=== PATIENT | female | born 2000 | race Hispanic/Latino ===

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

== ENCOUNTER 2018-01-05 11:51 | Emergency (ER) | payer OTHER | END 2018-01-05 13:37 | disposition home or self-care (01) | LOC: M ED 11:51 | DX: O99.89 Other specified diseases and conditions complicating pregnancy, childbirth and the puerperium (principal); M25.511 Pain in right shoulder; Z3A.09 9 weeks gestation of pregnancy; Z88.0 Allergy status to penicillin | CPT/HCPCS: 99283 ==

== ENCOUNTER 2018-03-02 12:18 | Emergency (ER) | payer OTHER ==
[2018-03-02] MEDS: ONDANSETRON 4 MG ORAL DISINTEGRATING TAB (Q0162 PER 1MG) PO (13:45)
== END 2018-03-02 14:54 | disposition home or self-care (01) ==
LOC: M ED 12:18
DX: R11.2 Nausea with vomiting, unspecified (principal); T43.205A Adverse effect of unspecified antidepressants, initial encounter; X58.XXXA Exposure to other specified factors, initial encounter; Y92.89 Other specified places as the place of occurrence of the external cause; F33.9 Major depressive disorder, recurrent, unspecified; F41.9 Anxiety disorder, unspecified; Z79.899 Other long term (current) drug therapy; Z88.0 Allergy status to penicillin
CPT/HCPCS: Q0162

== ENCOUNTER 2018-04-24 15:45 | Emergency (ER) | payer OTHER ==
[2018-04-24 16:51] LABS: BASO % 0.5 % (0.0-1.0); EOS # 0.3 10^3/uL (0.0-0.50); HEMATOCRIT 42.3 % (36.0-47.0); HEMOGLOBIN 14.6 g/dl (12.0-15.5); IMMATURE GRANULOCYTE % 0.2 % (0-3.0); LYMPH # 2.2 10^3/uL (1.5-6.5); LYMPH % 38.3 % (24.0-44.0); MEAN CORPUSCULAR HEMOGLOBIN 31.1 pg (27.0-33.0); MEAN CORPUSCULAR HGB CONC 34.5 g/dl (32.0-36.5); MONO # 0.4 10^3/uL (0.0-0.8); MONO % 6.4 % (0.0-5.0); NEUTROPHILS # 2.9 10^3/uL (1.8-7.7); NEUTROPHILS % 49.6 % (36.0-66.0); RED CELL DISTRIBUTION WIDTH 12.1 % (11.5-14.5); WHITE BLOOD COUNT 5.8 10^3/uL (4.0-10.0)
[2018-04-24 17:13] LABS: POS COUNT POS FLAG
[2018-04-24 17:22] LABS: ALBUMIN 3.6 GM/DL (3.2-5.2); ALBUMIN/GLOBULIN RATIO 0.92 (1.00-1.93); ALKALINE PHOSPHATASE 67 U/L (45-117); ALT/SGPT 16 U/L (12-78); ANION GAP 8 MEQ/L (8-16); AST/SGOT 18 U/L (7-37); BILIRUBIN,TOTAL 0.2 MG/DL (0.2-1.0); BLOOD UREA NITROGEN 13 MG/DL (7-18); CARBON DIOXIDE LEVEL 26 MEQ/L (21-32); CHLORIDE LEVEL 106 MEQ/L (98-107); CREATININE FOR GFR 0.85 MG/DL (0.55-1.30); GLUCOSE, FASTING 84 MG/DL (70-100); POTASSIUM SERUM 3.9 MEQ/L (3.5-5.1); SODIUM LEVEL 140 MEQ/L (136-145); TOTAL PROTEIN 7.5 GM/DL (6.4-8.2)
[2018-04-24 18:05] LABS: AMORPHOUS SEDIMENT RFX SMALL (NEGATIVE); KETONE, URINE AUTO RFX NEGATIVE (NEGATIVE); LEUKOCYTE ESTERASE UR AUTO RFX NEGATIVE (NEGATIVE); NITRITE, URINE AUTO RFX NEGATIVE (NEGATIVE); RBC, URINE AUTO RFX 2 /HPF (0-3); SPECIFIC GRAVITY UR AUTO RFX 1.016 (1.002-1.035); SQUAM EPITHELIAL CELL UR AURFX 1 /HPF (0-6); WBC, URINE AUTO RFX 1 /HPF (0-3)
[2018-04-24] MEDS: IBUPROFEN 600 MG TAB PO (18:52)
[2018-04-24 19:15] LABS: CONTROL LINE HCG INT CTR LINE PRESENT; HCG, SERUM QUALITATIVE NEGATIVE (NEGATIVE)
== END 2018-04-24 19:50 | disposition home or self-care (01) ==
LOC: M ED 15:45
DX: N93.8 Other specified abnormal uterine and vaginal bleeding (principal); F33.9 Major depressive disorder, recurrent, unspecified; Z79.899 Other long term (current) drug therapy; Z88.0 Allergy status to penicillin
CPT/HCPCS: 80053

== ENCOUNTER 2018-05-17 03:09 | Emergency (ER) | payer OTHER ==
[~2018-05-17] VITALS: Ht 162.6 cm; Wt 52.3 kg
[~2018-05-17 03:09] MED LIST: MIRT1TAB PO; PREN1CHW PO; VIST25CA PO; ZOFR4TAB14 PO; ZOLO50TA PO
[2018-05-17] MEDS ORDERED: PROZ20CA11 PO (03:18)
[2018-05-17] MEDS ORDERED: PROP10TA56 PO (03:18)
[2018-05-17] MEDS ORDERED: PRAZ5CAP PO (03:18)
[2018-05-17] MEDS ORDERED: NS 1,000 ML IV ONE (04:30)
[2018-05-17 05:45] VITALS: BP 108/62
[2018-05-30] MEDS ORDERED: ZOFR4TAB14 PO (00:15)
== END 2018-05-17 05:50 | disposition home or self-care (01) ==
LOC: M ED 03:09
DX: R42 Dizziness and giddiness (principal); I95.1 Orthostatic hypotension; T44.6X5A Adverse effect of alpha-adrenoreceptor antagonists, initial encounter; F41.9 Anxiety disorder, unspecified; Z79.899 Other long term (current) drug therapy; Z88.0 Allergy status to penicillin

== ENCOUNTER 2018-05-25 08:36 | Day surgery (SDC) | payer OTHER ==
[2018-05-25 09:40] LABS: CONTROL LINE UCG INT CTR LINE PRESENT; URINE PREG TEST NEGATIVE (NEGATIVE)
[2018-05-25] MEDS ORDERED: fentaNYL 100 MCG/2 ML INJECTION (J3010) As Ordered ×2 (11:10→11:30)
[2018-05-25] MEDS ORDERED: MIDAZOLAM INJ 2 MG/2 ML VIAL (J2250) As Ordered (11:10)
[2018-05-25] MEDS ORDERED: ONDANSETRON 4MG/2ML VIAL (J2405) As Ordered (11:10)
[2018-05-25] MEDS ORDERED: dexameTHASONE 4 MG/ML 1ML VIAL (J1100) As Ordered (11:10)
[2018-05-25] MEDS ORDERED: METOCLOPRAMIDE INJ 10MG/2ML VIAL (J2765) As Ordered (11:10)
[2018-05-25] MEDS ORDERED: LIDOCAINE 2% INJ 100 MG/5 ML SDV (FOR ANES.) As Ordered (11:10)
[2018-05-25] MEDS ORDERED: PROPOFOL 200 MG/20 ML VIAL As Ordered (11:10)
[2018-05-25] MEDS: dexameTHASONE 4 MG/ML 1ML VIAL (J1100) IV (11:12)
[2018-05-25] MEDS: OXYMETAZOLINE NASAL SPRAY (AFRIN) As Ordered (11:38)
[2018-05-25] MEDS ORDERED: MEPERIDINE INJ 25 MG/ML VIAL (J2175) As Ordered (11:51)
[2018-05-25] MEDS: MEPERIDINE INJ 25 MG/ML VIAL (J2175) IV ×2 (11:53→12:00)
[2018-05-25] MEDS ORDERED: PERCOCET 5MG/325MG TAB PO (12:00)
[2018-05-25] MEDS ORDERED: ONDANSETRON 4MG/2ML VIAL (J2405) IV (12:00)
[2018-05-25] MEDS ORDERED: LR 1,000 ML IV ×2 (12:00→12:15)
[2018-05-25] MEDS: fentaNYL 100 MCG/2 ML INJECTION (J3010) IV ×2 (12:08→12:15)
[2018-05-25] MEDS: IBUPROFEN 100 MG/5 ML SUSP UDC DYE FREE PO (13:03)
== END 2018-05-25 13:50 | disposition home or self-care (01) ==
LOC: M SDC 13:50
DX: J35.01 Chronic tonsillitis (principal); Z88.0 Allergy status to penicillin
CPT/HCPCS: 42826

== ENCOUNTER 2018-05-29 18:46 | Emergency (ER) | payer OTHER ==
[2018-05-29] MEDS: ONDANSETRON 4 MG ORAL DISINTEGRATING TAB (Q0162 PER 1MG) PO (19:39)
[2018-05-29] MEDS: LIDOCAINE VISCOUS 2% SOLN 15ML UDC SSP (19:40)
[2018-05-29 19:51] LABS: BASO % 0.5 % (0.0-1.0); EOS # 0.2 10^3/uL (0.0-0.50); EOS % 2.7 % (0.0-3.0); HEMATOCRIT 44.9 % (36.0-47.0); HEMOGLOBIN 15.5 g/dl (12.0-15.5); IMMATURE GRANULOCYTE % 0.2 % (0-3.0); LYMPH # 1.6 10^3/uL (1.5-6.5); LYMPH % 25.5 % (24.0-44.0); MEAN CORPUSCULAR HEMOGLOBIN 30.7 pg (27.0-33.0); MEAN CORPUSCULAR HGB CONC 34.5 g/dl (32.0-36.5); MEAN CORPUSCULAR VOLUME 88.9 fl (80.0-96.0); MONO # 0.4 10^3/uL (0.0-0.8); MONO % 6.5 % (0.0-5.0); NEUTROPHILS # 4.1 10^3/uL (1.8-7.7); NEUTROPHILS % 64.6 % (36.0-66.0); PLATELET COUNT, AUTOMATED 261 10^3/uL (150-450); RED BLOOD COUNT 5.05 10^6/uL (4.00-5.40); RED CELL DISTRIBUTION WIDTH 12.4 % (11.5-14.5); WHITE BLOOD COUNT 6.3 10^3/uL (4.0-10.0)
[2018-05-29 20:14] LABS: ALBUMIN 3.7 GM/DL (3.2-5.2); ALBUMIN/GLOBULIN RATIO 0.95 (1.00-1.93); ALKALINE PHOSPHATASE 83 U/L (45-117); ALT/SGPT 18 U/L (12-78); ANION GAP 10 MEQ/L (8-16); AST/SGOT 21 U/L (7-37); BILIRUBIN,DIRECT 0.1 MG/DL (0.0-0.2); BILIRUBIN,TOTAL 0.5 MG/DL (0.2-1.0); BLOOD UREA NITROGEN 16 MG/DL (7-18); C REACTIVE PROTEIN QUANTITATIV 0.61 MG/DL (0.00-0.30); CALCIUM LEVEL 8.9 MG/DL (8.5-10.1); CARBON DIOXIDE LEVEL 23 MEQ/L (21-32); CHLORIDE LEVEL 106 MEQ/L (98-107); CREATININE FOR GFR 0.73 MG/DL (0.55-1.30); GLUCOSE, FASTING 81 MG/DL (70-100); POTASSIUM SERUM 3.8 MEQ/L (3.5-5.1); SODIUM LEVEL 139 MEQ/L (136-145); TOTAL PROTEIN 7.6 GM/DL (6.4-8.2)
[2018-05-29] MEDS: MORPHINE 2 MG/ML 1ML SYRINGE (J2270) IV (21:55)
[2018-05-29] MEDS: NS 1,000 ML IV (21:55)
[2018-05-29] MEDS: PROMETHAZINE INJ 25 MG/ML VIAL (J2550) IV (22:00)
== END 2018-05-30 00:22 | disposition home or self-care (01) ==
LOC: M ED 05-30 00:22
DX: R11.2 Nausea with vomiting, unspecified (principal)
CPT/HCPCS: Q0162